=== PATIENT | female | born 1955 | race Caucasian/White ===

== ENCOUNTER 2020-05-06 16:55 | Outpatient (CLI) | payer OTHER, BC | END 2020-05-06 16:56 | disposition critical access hospital (66) | LOC: EMS 16:55 | PROVIDERS: ATTEND Surgery | DX: M54.9 Dorsalgia, unspecified (principal); V43.52XA Car driver injured in collision with other type car in traffic accident, initial encounter; Y92.414 Local residential or business street as the place of occurrence of the external cause | CPT/HCPCS: A0425; A0429 ==